=== PATIENT | male | born 1960 | race Caucasian/White ===

== ENCOUNTER 2020-01-08 18:34 | Inpatient (IN) | payer OTHER ==
[2020-01-08 18:46] VITALS: BMI 26.6
--- OUTSIDE RECORDS SUMMARY | 2020-01-08 18:56 | XMS ---
:1960 [facility] Support Name Relationship Address Phone Contract Live Unavailable [address] [place] [address] Re-disclosure Warning The records that you are about to access may contain information from federally- assisted alcohol or drug abuse programs. If such information is present, then the following federally mandated warning applies: This information has been disclosed to you from records protected by federal confidentiality rules (42 CFR part 2). The federal rules prohibit you from making any further disclosure of this information unless further disclosure is expressly permitted by the written consent of the person to whom it pertains or as otherwise permitted by 42 CFR part 2. A general authorization for the release of medical or other information is NOT sufficient for this purpose. The Federal rules restrict any use of the information to criminally investigate or prosecute any alcohol or drug abuse patient.The records that you are about to access may contain highly sensitive health information, the redisclosure of which is protected by Article 27-F of the [facility] Public Health law. If you continue you may haveaccess to information: Regarding HIV / AIDS; Provided by facilities licensed or operated by the [facility] Office of Mental Health; or Provided by the [facility] Office for People With Developmental Disabilities. If such information is present, then the following [facility] mandated warning applies: This information has been disclosed to you from confidential records which are protected by state law. State law prohibits you from making any further disclosure of this information without the specific written consent of the person to whom it pertains, or as otherwise permitted by law. Any unauthorized further disclosure in violation of state law may result in a fine or correction sentence or both. A general authorization for the release of medical or other information is NOT sufficient authorization for further disclosure. Insurance Providers Payer name Policy type Policy ID Covered Covered republican's Policy P jasson / Coverage republican ID relationship to Still Inf ormation type still SELF PAY SP INSURANCE
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
[2020-01-08 20:24] LABS: BASO % 0.3 % (0-2.0); EOS % 2.6 % (0-4.5); HEMATOCRIT 44.4 % (35.4-49); HEMOGLOBIN 15.3 GM/dL (11.7-16.9); LYMPH % 26.5 % (8-40); MCH 31.6 pg (25.7-33.7); MCHC 34.6 g/dl (32.0-35.9); MEAN CELL VOLUME 91.2 fl (80-96); MEAN PLT VOLUME 8.6 fl (7.5-11.1); MONO % 8.6 % (3.8-10.2); PLATELET COUNT 129 K/MM3 (134-434); RBC 4.86 M/mm3 (4.00-5.60); RDW 13.5 % (11.9-15.9); WHITE BLOOD COUNT 4.4 K/mm3 (4.0-10.0)
[2020-01-08 20:32] LABS: INR 1.06 (0.83-1.09); PROTHROMBIN TIME (PATIENT) 12.5 SEC (9.7-13.0)
[2020-01-08 20:34] LABS: ACTIVATED PTT 31.1 SECONDS (25.2-36.5)
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
[2020-01-08 20:56] LABS: ALBUMIN 3.8 g/dl (3.4-5.0); BILIRUBIN,TOTAL 0.5 mg/dL (0.2-1); BLOOD UREA NITROGEN 14.2 mg/dL (7-18); CALCIUM 8.9 mg/dL (8.5-10.1); CREATININE 0.8 mg/dL (0.55-1.3); MAGNESIUM 2.3 mg/dL (1.8-2.4); POTASSIUM 3.8 mmol/L (3.5-5.1); TOT PROT 7.3 g/dl (6.4-8.2)
[2020-01-08] MEDS ORDERED: amLODIPine BESYLATE 5 MG TABLET (FP) PO ONE (21:39)
[2020-01-08] MEDS ORDERED: amLODIPine BESYLATE 5 MG TABLET (FP) ONE (21:41)
--- OUTSIDE RECORDS SUMMARY | 2020-01-08 21:46 | XMS ---
:1960 [facility] Support Name Relationship Address Phone AccessData AYUSH Unavailable [address] [place] [address] Re-disclosure Warning The records that you are [...] is protected by Article 27-F of the [place] Public Health law. If you continue you may haveaccess to information: Regarding HIV / AIDS; Provided by facilities licensed or operated by the [place] Office of Mental Health; or Provided by the [place] Office for People With Developmental Disabilities. If such information is present, then the following [place] mandated warning applies: This information has been [...] law may result in a fine or snf sentence or both. A general authorization for the release of medical or other information is NOT sufficient authorization for further disclosure. Insurance Providers Payer name Policy type Policy ID Covered Covered republican's Policy P jasson / Coverage republican ID relationship to Still Inf ormation type still [place] [id number] SELF PAY SP INSURANCE
[2020-01-08] MEDS ORDERED: ASPIRIN 81 MG CHEWABLE TABLETS PO SCH (22:00)
[2020-01-08] MEDS ORDERED: metoPROLOL SUCCINATE 25 MG TAB.SR.24H (FP) PO SCH (22:30)
[2020-01-08] MEDS ORDERED: NITROGLYCERIN SUBLINGUAL 1/150 0.4 MG TAB SL PRN (22:30)
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
[2020-01-08] MEDS ORDERED: metoPROLOL SUCCINATE 25 MG TAB.SR.24H (FP) ONE (23:01)
[2020-01-09] MEDS ORDERED: ENOXAPARIN NA (PORCINE) 80 MG/0.8 ML DISP.SYRIN SQ ONE (01:17)
[2020-01-09] MEDS: ENOXAPARIN NA (PORCINE) 80 MG/0.8 ML DISP.SYRIN SQ SCH ×2 (01:20→12:07)
[2020-01-09 07:42] LABS: BASO % 0.3 % (0-2.0); HEMATOCRIT 46.9 % (35.4-49); HEMOGLOBIN 15.8 GM/dL (11.7-16.9); LYMPH % 25.4 % (8-40); MCH 30.9 pg (25.7-33.7); MCHC 33.8 g/dl (32.0-35.9); MEAN CELL VOLUME 91.3 fl (80-96); MEAN PLT VOLUME 8.4 fl (7.5-11.1); MONO % 8.8 % (3.8-10.2); NEUT % 61.5 % (42.8-82.8); PLATELET COUNT 131 K/MM3 (134-434); RBC 5.13 M/mm3 (4.00-5.60); RDW 13.4 % (11.9-15.9); WHITE BLOOD COUNT 3.9 K/mm3 (4.0-10.0)
[2020-01-09 07:53] LABS: INR 1.05 (0.83-1.09); PROTHROMBIN TIME (PATIENT) 12.4 SEC (9.7-13.0)
[2020-01-09 08:37] LABS: ALBUMIN 3.7 g/dl (3.4-5.0); BILIRUBIN,TOTAL 0.7 mg/dL (0.2-1); BLOOD UREA NITROGEN 14.8 mg/dL (7-18); CALCIUM 8.8 mg/dL (8.5-10.1); CREATININE 0.7 mg/dL (0.55-1.3); MAGNESIUM 2.4 mg/dL (1.8-2.4); POTASSIUM 3.8 mmol/L (3.5-5.1); TOT PROT 7.3 g/dl (6.4-8.2)
[2020-01-09] MEDS ORDERED: ASPIRIN COATED 81 MG TABLET.EC PO SCH (10:00)
[2020-01-09] MEDS ORDERED: ENOXAPARIN NA (PORCINE) 40 MG/0.4 ML DISP.SYRIN SQ SCH (10:00)
[2020-01-09] MEDS ORDERED: ASPIRIN COATED 81 MG TABLET.EC ONE (10:06)
--- NOTE | 2020-01-09 10:07 | CON.CARD ---
Cardiology Consult (text) - Consultation Consultation Note: Chief Complaint: Events noted, notes reviewed, resting in bed, denies any chest pain or dyspnea, reported chest discomfort with associated nausea and near synco pe 2 weeks ago, noted to have elevated blood pressure measurements History of Present Illness: Seen and examined in ER as telemetry hold. Full consult dictated - Current Medication List Current Medications Generic Name Dose Route Start Last Admin Trade Name Freq PRN Reason Stop Dose Admin Aspirin 81 mg 01/09/20 10:00 Ecotrin - PO DAILY [facility] Atorvastatin Calcium 80 mg 01/09/20 22:00 Lipitor - PO 01/09/20 22:01 ONCE ONE Enoxaparin Sodium 70 mg 01/09/20 00:45 01/09/20 01:20 Lovenox - SQ 70 mg BID [facility] Administration Metoprolol Succinate 25 mg 01/08/20 22:30 01/08/20 23:08 Toprol Xl - PO 25 mg DAILY [facility] Administration Nitroglycerin 0.4 mg 01/08/20 22:30 Nitrostat - SL Q5M PRN FOR CHEST PAIN - Review of Systems Constitutional: denies: Chills, Fever Cardiovascular: As noted above Respiratory: denies: Cough or Sputum Production Gastrointestinal: denies: Abdominal Pain, Constipation, Melena, Nausea, Rectal Bleeding, Vomiting Genitourinary: denies: Dysuria, Hematuria Musculoskeletal: denies: Back Pain, Joint Pain Neurological: reports: Dizziness, Near Syncope. denies: Confusion, Headache, Numbness, Seizure, Unsteady Gait - Objective Vital Signs: Last Vital Signs Temp Pulse Resp BP Pulse Ox 98.4 F 83 15 117/68 98 01/09/20 06:46 01/09/20 06:46 01/09/20 06:46 01/09/20 06:46 01/09/20 06:46 Intake & Output 01/06/20 01/07/20 01/08/20 01/09/20 23:59 23:59 23:59 23:59 Weight 160 lb Neck: Supple Negative JVD Cardiovascular: S1 S2 Regular Rate and Rhythm No Murmurs Respiratory: Clear Bilaterally Gastrointestinal: Soft Benign Normal Bowel Sounds Ext: Negative Edema Labs: Troponin, BNP 01/08/20 01/08/20 01/09/20 20:01 23:07 07:08 Troponin I 0.04 0.09 H 0.07 H CBC, BMP 01/09/20 07:08 01/09/20 07:08 Hepatic Panel Total Bilirubin 0.7 mg/dL (0.2-1) 01/09/20 07:08 AST 19 U/L (15-37) 01/09/20 07:08 ALT 25 U/L (13-61) 01/09/20 07:08 Alkaline Phosphatase 91 U/L (45-117) 01/09/20 07:08 Albumin 3.7 g/dl (3.4-5.0) 01/09/20 07:08 INR, PTT INR 1.05 (0.83-1.09) 01/09/20 07:08 Assessment/Plan ASSESSMENT: 1. Chest pain syndrome atypical for CAD angina pectoris with evidence of demand ischemia (Troponin I peaked although low level)- no acute EKG changes 2. Probable diastloc LV dysfunction with class 0 NYHA classification LV failure 3. HTN 4. Hyperlipidemia 5. Neutropenia and thrombocytopenia 6. Poor compliance with medical F/U PLAN: 1. Agree with B-Blockers 2. ASA and Lovenox with caution considering the above noted thrombocytopenia/repeat CBC- avoid additional anti-platelet agent therapy unless is absolutely indicated 3. Agree with high dose statin therapy 4. Add Ranexa 5. Add ARB's unless absolutely contraindicated 6. If patient is asymptomatic with the addition of the above noted therapies; may be D/C home for additional testing as outpatient otherwise if symptoms recur recommend early LHC/coronary angiography Adrian May MD
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
[2020-01-09 10:13] VITALS: BP 118/76; PULSE 73; TEMP 97.9
[2020-01-09] MEDS ORDERED: VALSARTAN 40 MG TABLET PO SCH (10:45)
[2020-01-09] MEDS ORDERED: RANOLAZINE E.R. 500 MG TABLET (FP) PO SCH (10:45)
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
[2020-01-09] MEDS ORDERED: ATORVASTATIN CA 80 MG TABLET (FP) PO ONE (22:00)
--- NOTE | 2020-01-10 07:00 | EKG ---
Test Reason : Blood Pressure : / mmHG Vent. Rate : 062 BPM Atrial Rate : 062 BPM P-R Int : 176 ms QRS Dur : 090 ms QT Int : 392 ms P-R-T Axes : 051 004 057 degrees QTc Int : 397 ms NORMAL SINUS RHYTHM T WAVE ABNORMALITY, CONSIDER ANTERIOR ISCHEMIA ABNORMAL ECG WHEN COMPARED WITH ECG OF 08-JAN-2020 18:40, NO SIGNIFICANT CHANGE WAS FOUND CLINICAL CORRELATION IS RECOMMENDED Confirmed by MONIE PERDOMO MD ([id number]) on 01/10/2020 7:00:18 AM Referred By: Confirmed By:MONIE PERDOMO MD
--- NOTE | 2020-01-10 07:04 | EKG ---
Test Reason : Blood Pressure : / mmHG Vent. Rate : 082 BPM Atrial Rate : 082 BPM P-R Int : 174 ms QRS Dur : 080 ms QT Int : 354 ms P-R-T Axes : 051 016 051 degrees QTc Int : 413 ms NORMAL SINUS RHYTHM POSSIBLE LEFT ATRIAL ENLARGEMENT NONSPECIFIC ST ABNORMALITY ABNORMAL ECG NO PREVIOUS ECGS AVAILABLE CLINICAL CORRELATION IS RECOMMENDED Confirmed by MONIE PERDOMO MD ([id number]) on 01/10/2020 7:03:49 AM Referred By: Confirmed By:MONIE PERDOMO MD
== END 2020-01-09 12:18 | disposition home or self-care (01) | DRG 313 ==
LOC: JER 18:34 → JERBED 20:41 → OBSVTOIN 22:18
PROVIDERS: ADMIT Student in an Organized Health Care Education/Training Program; ATTEND Family Medicine
DX: R07.89 Other chest pain (principal); I10 Essential (primary) hypertension; E78.5 Hyperlipidemia, unspecified; D69.6 Thrombocytopenia, unspecified; D70.9 Neutropenia, unspecified; I25.119 Atherosclerotic heart disease of native coronary artery with unspecified angina pectoris; Z91.14 Patient's other noncompliance with medication regimen
CPT/HCPCS: 36415; 71046-TC-FY; 80053; 80061; 82550; 83036; 83721; 83735; 84443; 84484; 85025; 85610; 85730; 93005; 93010; 99285-25; C9803; G0378; U0003